=== PATIENT | male | born 2000 | race Caucasian/White ===

== ENCOUNTER 2024-06-15 12:14 | Emergency (ER) | payer SELFPAY ==
[~2024-06-15] VITALS: Ht 177.8 cm; Wt 75.0 kg
[2024-06-15 12:19] VITALS: BP 142/64; PULSE 76; RESP 16; TEMP 98.2; O2SAT 99
== END 2024-06-15 13:04 | disposition home or self-care (01) ==
LOC: ER 12:14
DX: S41.112D Laceration without foreign body of left upper arm, subsequent encounter (principal); X58.XXXD Exposure to other specified factors, subsequent encounter
CPT/HCPCS: 99281